=== PATIENT | male | born 1945 | race Caucasian/White ===

== ENCOUNTER 2017-12-23 19:28 | Emergency (ER) | payer MEDICARE, BC ==
[2017-12-23] MEDS ORDERED: Lactated Ringers 1,000 ML IV ONE (20:40)
[2017-12-23] MEDS ORDERED: Sodium Chloride 0.9% 10 ML Syringe FLUSH PRN (20:41)
[2017-12-23] MEDS ORDERED: Ondansetron 4 MG/2 ML SDV IVPUSH ONE (20:41)
[2017-12-23] MEDS ORDERED: Sodium Chloride 0.9% 1,000 ML IV ONE (20:41)
[2017-12-23] MEDS ORDERED: Ondansetron 4 MG Tab.DIS PO ONE (21:29)
--- NOTE | 2017-12-24 12:15 | ER ---
DATE SEEN: 12/23/2017 TIME SEEN: The patient was seen at 2000 hours. HISTORY OF PRESENT ILLNESS: Lonny is a 72-year-old man who ate shrimp at [employer] last night. He became mildly sick in the middle of the night and had vomiting and diarrhea. Onset at 0100 hours. Vomited 8 times and almost the same number of times experienced diarrhea. Feels slightly weak. Denies chest pain, shortness of breath, cough, lightheadedness, dizziness, but has moderate abdominal discomfort and sore rectum and mild muscle aches. Denies fever, headache, neck stiffness, blurred vision, paresis, weakness, upper and lower extremities. PAST MEDICAL HISTORY: Significant for hypertension and dyslipidemia. MEDICATIONS: 1. Losartan/hydrochlorothiazide 100/25. 2. Omeprazole 20 mg daily. 3. Simvastatin 40 mg daily. 4. Bisoprolol 5 mg daily. 5. Amlodipine 5 mg daily. He notes when he takes these medicines today, he was more lightheaded than usual. PREVIOUS SURGERIES: Negative. OTHER SERIOUS ILLNESSES: Negative. No diabetes or heart disease. He does have GERD, hypertension, dyslipidemia. ALLERGIES: None. REVIEW OF SYSTEMS: Negative. PHYSICAL EXAMINATION: VITAL SIGNS: 148/80, respirations 20, heart rate 102, heart rate came down to 78, blood pressure came down to 123/73, respirations down to 14, and oxygen saturation stayed the same at 97%, 36.6 degrees centigrade. GENERAL: The patient is alert, feeling uncomfortable. Communicative, has slightly decreased hearing. He is accompanied by his . HEENT: PERRLA intact. Pharynx without abnormality. Some mild dry mucosa. No cervical adenopathy. NECK: Soft. No neck stiffness. No bruits in the neck. LUNGS: Clear without rales, rhonchi, or wheezes. HEART: S1, S2. No irregular rate and rhythm. ABDOMEN: Soft, mild voluntary guarding. Bowel sounds increased. No CVA percussion tenderness. No rebound. Mild guarding. LOWER EXTREMITIES: Without abnormality. Deep tendon reflexes normal, upper and lower extremities. NEUROLOGIC: Cranial nerves 2 through 12 intact. Strength intact. Gait appropriate, not ataxic. ASSESSMENT: Dehydration secondary to vomiting induced from probable food poison toxin. PLAN: Treat with IV fluids. I did discuss at length the performance of blood test and felt that regardless what the blood test showed he would still be getting IV antibiotics and also he might spare the expense of blood tests and could be treated without ordering them. He felt comfortable with that decision. With joint decision making, the patient was flushed with 1000 mL of normal saline and 1000 mL of left lactated Ringer's, then dismissed to home. He is to follow up with doctor as needed in the next 24 hours if worse otherwise in 7 days as needed. DIAGNOSES: Food poisoning with gastroenteritis and dehydration; transient elevation in blood pressure, which resolved with hydration, associated tachycardia resolved with rehydration. /[id number] GIA/TATIANA
== END 2017-12-23 23:04 | disposition home or self-care (01) ==
LOC: FB.ED 19:28
DX: T61.8X1A Toxic effect of other seafood, accidental (unintentional), initial encounter (principal); R11.10 Vomiting, unspecified; E86.0 Dehydration; K52.9 Noninfective gastroenteritis and colitis, unspecified; I10 Essential (primary) hypertension; E78.5 Hyperlipidemia, unspecified; Z79.899 Other long term (current) drug therapy
CPT/HCPCS: 96361; 96374; 99284; J2405; J7040; J7050; J7120

== ENCOUNTER 2021-09-18 16:56 | Emergency (ER) | payer MEDICARE, BC ==
[2021-09-18] MEDS ORDERED: Ondansetron 4 MG Tab.DIS PO ONE (16:57)
--- NOTE | 2021-09-18 17:52 | EDM.PDOC ---
ED HPI GENERAL MEDICAL PROBLEM - General Stated Complaint: STOMACH ACHE,WEAK Time Seen by Provider: 09/18/21 17:35 - History of Present Illness INITIAL COMMENTS - FREE TEXT/NARRATIVE: 75-year-old gentleman came to the emergency department because of weakness, stomach discomfort/nausea, vomiting. States that he felt well yesterday but felt weak today he was out shoveling some snow and became weaker. Came inside has some nausea and vomited. Overall he came in because he just feels really weak. He has not had fever, chills, chest pain, upper respiratory symptoms. He denies dysuria, hematuria, hematochezia. He has had some recent travel. He is fully vaccinated against COVID-19. He does not have any known Covid positive contacts. - Related Data Allergies Allergy/AdvReac Type Severity Reaction Status Date / Time No Known Allergies Allergy Verified 12/23/17 19:37 Home Meds: Home Meds Bisoprolol [Zebeta] 5 mg PO DAILY 12/23/17 [History] Losartan/Hydrochlorothiazide [Losartan-HCTZ 100-25 MG] 1 tab PO DAILY 12/23/17 [History] Omeprazole 20 mg PO ASDIRECTED 12/23/17 [History] Simvastatin 40 mg PO ASDIRECTED 12/23/17 [History] amLODIPine Besylate [Amlodipine Besylate] 5 mg PO ASDIRECTED 12/23/17 [History] Past Medical History HEENT History: Reports: Impaired Vision Other HEENT History: wears glasses Cardiovascular History: Reports: High Cholesterol, Hypertension Endocrine/Metabolic History: Reports: Diabetes, Type II Other Endocrine/Metabolic History: states diabetes control by diet - Infectious Disease History Infectious Disease History: Reports: Chicken Pox, Measles Social & Family History - Family History Family Medical History: No Pertinent Family History - Caffeine Use Caffeine Use: Reports: None ED ROS GENERAL - Review of Systems Review Of Systems: See Below Constitutional: Reports: Malaise, Weakness HEENT: Reports: No Symptoms Respiratory: Reports: No Symptoms Cardiovascular: Reports: No Symptoms Endocrine: Reports: No Symptoms GI/Abdominal: Reports: Decreased Appetite, Nausea, Vomiting : Reports: No Symptoms Musculoskeletal: Reports: No Symptoms Skin: Reports: No Symptoms Neurological: Reports: Weakness Psychiatric: Reports: No Symptoms Hematologic/Lymphatic: Reports: No Symptoms Immunologic: Reports: No Symptoms ED EXAM, GI/ABD - Physical Exam Exam: See Below Exam Limited By: No Limitations General Appearance: Alert, No Apparent Distress Eyes: Bilateral: EOMI Head: Atraumatic, Normocephalic Neck: Normal Inspection Respiratory/Chest: No Respiratory Distress, Lungs Clear Cardiovascular: Normal Peripheral Pulses, Regular Rate, Rhythm, No Murmur GI/Abdominal Exam: Normal Bowel Sounds, Non-Tender Back Exam: Normal Inspection Extremities: Normal Inspection Neurological: Alert, Oriented, CN II-XII Intact, Normal Cognition, Normal Gait Psychiatric: Normal Affect, Normal Mood Skin Exam: Warm, Dry Course - Vital Signs Text/Narrative:: Review of labs shows that COVID-19 test is negative. He does have a leukocytosis. However he has no other symptoms other than nausea with vomiting. This is likely a viral gastroenteritis. Patient abdominal exam was negative for tenderness to palpation in any quadrant and there are no specific concerns for abdominal infection such as diverticulitis. Patient has no concerns for urinary tract infection there are no physical exam findings concerning for urinary tract infection. She does not have cough and lung exam is negative. Patient was given 1 L lactated Ringer's. Lactated Ringer's was chosen because he has a very slight hypokalemia. Patient was also given Zofran 4 mg ODT with good relief. Last Recorded V/S: Last Vital Signs Temp 36.3 C 09/18/21 17:00 Pulse 95 09/18/21 17:00 Resp 18 09/18/21 17:00 BP 144/71 H 09/18/21 17:00 Pulse Ox 97 09/18/21 17:00 - Orders/Labs/Meds Orders: Active Orders 24 hr Category Date Time Status Ondansetron [Zofran ODT] Med 09/18/21 18:42 Active 4 mg PO ONETIME PRN Medication Orders Ondansetron HCl (Ondansetron 4 Mg Tab.Dis) 4 mg PO ONETIME PRN PRN Reason: Nausea Last Admin: 09/18/21 18:58 Dose: 4 mg Documented by: LEXI Labs: Laboratory Tests 09/18/21 09/18/21 09/18/21 Range/Units 17:46 18:10 18:10 WBC 13.8 H (3.2-10.1) x10-3/uL RBC 4.86 (3.90-5.90) x10(6)uL Hgb 14.0 (12.9-17.7) g/dL Hct 41.8 (38.3-50.1) % MCV 86.2 (80.8-98.7) fL MCH 28.9 (27.0-33.3) pg MCHC 33.5 (28.7-35.3) g/dL RDW 14.1 (12.4-15.0) % Plt Count 192 (117-477) x10(3)uL MPV 8.0 (6.7-11.0) fL Neut % (Auto) 80.8 H (40.3-71.8) % Lymph % (Auto) 8.3 L (15.8-45.3) % Callahan % (Auto) 8.0 (5.5-15.2) % Eos % (Auto) 2.1 (0.1-6.8) % Baso % (Auto) 0.8 (0.3-3.8) % Neut # (Auto) 11.1 H (1.7-6.9) x10-3/uL Lymph # (Auto) 1.1 (0.5-4.5) x10-3/uL Callahan # (Auto) 1.1 (0.0-1.2) x10-3/uL Eos # (Auto) 0.3 (0.0-0.6) x10-3/uL Baso # (Auto) 0.1 (0.0-0.3) x10-3/uL Sodium 139 (135-145) mmol/L Potassium 3.4 L (3.5-5.3) mmol/L Chloride 101 (100-110) mmol/L Carbon Dioxide 25 (21-32) mmol/L BUN 18 (7-18) mg/dL Creatinine 1.3 (0.70-1.30) mg/dL Est Cr Clr Drug Dosing TNP Estimated GFR (MDRD) 54 L (>60) BUN/Creatinine Ratio 13.8 (9-20) Glucose 161 H (80-116) mg/dL Calcium 9.0 (8.6-10.2) mg/dL Total Bilirubin 1.2 (0.1-1.3) mg/dL AST 65 H (5-25) IU/L ALT 71 H (12-36) U/L Alkaline Phosphatase 100 (56-112) IU/L Total Protein 7.6 (6.0-8.0) g/dL Albumin 3.9 (3.2-4.6) g/dL Globulin 3.7 g/dL Albumin/Globulin Ratio 1.1 SARS-CoV-2 RNA (RAJIV) Negative (NEGATIVE) Meds: Medications Generic Name Dose Route Start Last Admin Trade Name Freq PRN Reason Stop Dose Admin Ondansetron HCl 4 mg 09/18/21 18:42 09/18/21 18:58 Ondansetron 4 Mg Tab.Dis PO 4 mg ONETIME PRN Administration Nausea Discontinued Medications Generic Name Dose Route Start Last Admin Trade Name Freq PRN Reason Stop Dose Admin Lactated Ringer's 1,000 mls @ 999 mls/hr 09/18/21 18:43 09/18/21 18:45 Ringers, Lactated IV 09/18/21 19:43 999 mls/hr BOLUS ONE Administration Ondansetron HCl Confirm 09/18/21 18:43 09/18/21 18:57 Ondansetron 4 Mg Tab.Dis Administered 09/18/21 18:44 Not Given Dose 4 mg .ROUTE .STK-MED ONE Departure - Departure Time of Disposition: 20:19 Disposition: Home, Self-Care 01 Condition: Good Clinical Impression: Gastroenteritis - Discharge Information *PRESCRIPTION DRUG MONITORING PROGRAM REVIEWED*: Not Applicable *COPY OF PRESCRIPTION DRUG MONITORING REPORT IN PATIENT JUAN DANIEL: Not Applicable Instructions: Viral Gastroenteritis, Adult, [id number] Referrals: Messi Rodriguez MD [Primary Care Provider] - Additional Instructions: Patient symptoms are likely viral such as viral gastroenteritis. He does not have lung exam or symptoms concerning for pneumonia. He does not have symptoms concerning for urinary tract infection. Does not have abdominal exam concerning for abdominal infection such as diverticulitis. Patient sent home with Zofran ODT, 4 mg every 6 hours as needed for nausea. Patient strongly encouraged to follow-up with his primary care physician. Sepsis Event Note (ED) - Focused Exam Vital Signs: Vital Signs Temp Pulse Resp BP Pulse Ox 09/18/21 17:00 36.3 C 95 18 144/71 H 97 - My Orders Last 24 Hours: My Active Orders 09/18/21 18:42 Ondansetron [Zofran ODT] 4 mg PO ONETIME PRN - Assessment/Plan Last 24 Hours: My Active Orders 09/18/21 18:42 Ondansetron [Zofran ODT] 4 mg PO ONETIME PRN
[2021-09-18] MEDS ORDERED: Ondansetron 4 MG Tab.DIS PO PRN (18:42)
[2021-09-18] MEDS ORDERED: Lactated Ringers 1,000 ML IV ONE (18:43)
[2021-09-18] MEDS ORDERED: Ondansetron 4 MG Tab.DIS ONE (18:43)
== END 2021-09-18 20:40 | disposition home or self-care (01) ==
LOC: FB.ED 16:56
DX: K52.9 Noninfective gastroenteritis and colitis, unspecified (principal); E78.00 Pure hypercholesterolemia, unspecified; E11.9 Type 2 diabetes mellitus without complications; I10 Essential (primary) hypertension; Z79.899 Other long term (current) drug therapy; Z20.822 Contact with and (suspected) exposure to COVID-19
CPT/HCPCS: 36415; 80053; 85025; 99284; A9270; J7120; U0002